=== PATIENT | male | born 1970 | race Caucasian/White ===

== ENCOUNTER 2020-08-05 07:29 | Emergency (ER) | payer SELFPAY ==
[~2020-08-05] VITALS: Ht 182.9 cm; Wt 85.3 kg
[2020-08-05 07:37] VITALS: BP 138/96
[2020-08-05] MEDS ORDERED: ONDANSETRON 4MG INJ IVP ONE (08:00)
[2020-08-05] MEDS ORDERED: LACTATED RINGERS 1000ML 1,000 ML IV ONE (08:00)
[2020-08-05 08:02] LABS: BASOPHILS % (AUTO) 0.4 % (0.0-5.0); EOSINOPHILS % (AUTO) 1.6 % (0.0-8.0); HEMATOCRIT 39.5 % (42-54); LYMPHOCYTES % (AUTO) 9.2 % (21.0-51.0); MEAN CORPUSCULAR HEMOGLOBIN 30.5 pg (27.0-33.0); MEAN CORPUSCULAR VOLUME 82.5 fL (79-99); MONOCYTES % (AUTO) 16.8 % (3.0-13.0); NEUTROPHILS % (AUTO) 71.8 % (40.0-77.0); PLATELET COUNT (AUTO) 219 K/uL (130-400); RED BLOOD CELL COUNT(AUTO) 4.79 MIL/uL (4.50-6.20); RED CELL DISTRIBUTION WIDTH 12.4 % (11.0-15.5); WHITE BLOOD COUNT (AUTO) 5.7 K/uL (4.8-10.8)
[2020-08-05 08:15] LABS: ALANINE AMINOTRANSFERASE 43 U/L (12-78); ALBUMIN 4.1 g/dL (3.5-5.0); ASPARTATE AMINOTRANSFERASE 51 U/L (10-37); BILIRUBIN,TOTAL 1.4 mg/dL (0.2-1.0); CARBON DIOXIDE 27 mmol/L (21-32); CREATININE 0.6 mg/dL (0.5-1.5); GLOMERULAR FILTR. RATE CALC 153 mL/min (>60); GLUCOSE,RANDOM 103 mg/dL (70-105); LIPASE < 50 U/L (114-286); POTASSIUM 3.9 mmol/L (3.5-5.1); SODIUM SERUM 118 mmol/L (136-145); TOTAL PROTEIN, SERUM 7.6 g/dL (6.0-8.3); UREA NITROGEN, BLOOD 7 mg/dL (7-18)
[2020-08-05 08:16] LABS: CHLORIDE 81 mmol/L (101-111)
[2020-08-05] MEDS ORDERED: ONDANSETRON 4MG INJ ONE (09:16)
[2020-08-05] MEDS: 0.9%NACL 1000ML 1,000 ML IV SCH (09:21)
[2020-08-05 09:22] VITALS: BP 130/85
[2020-08-05] MEDS ORDERED: ONDA4TAB10 PO ×2 (10:25→10:27)
[2020-08-05 10:31] VITALS: BP 132/88
== END 2020-08-05 11:23 | disposition home or self-care (01) ==
LOC: EDH 07:29
DX: A08.4 Viral intestinal infection, unspecified (principal); I10 Essential (primary) hypertension; Z79.899 Other long term (current) drug therapy
CPT/HCPCS: 36415; 80053; 83690; 84484; 85025; 96361; 96374; 99283; J2405; J7030